=== PATIENT | female | born 1945 | race Caucasian/White ===

== ENCOUNTER 2019-10-31 14:32 | Inpatient (IN) | payer MEDICARE ==
[2019-10-31] MEDS ORDERED: Ondansetron 4 MG Tab.DIS PO PRN (15:06)
[2019-10-31] MEDS ORDERED: Sodium Chloride 0.9% 10 ML Syringe FLUSH PRN (15:06)
[2019-10-31] MEDS ORDERED: Levofloxacin/Dextrose 5%-Water 750 MG in Premix Bag 1 BAG IV SCH (15:30)
[2019-10-31] MEDS ORDERED: Albuterol/Ipratropium 3.0-0.5 MG/3 ML Neb Soln NEB PRN (17:00)
--- NOTE | 2019-10-31 17:49 | PCM.HP.2 ---
H&P History of Present Illness - General Date of Service: 10/31/19 Admit Problem/Dx: Admission Diagnosis/Problem Admission Diagnosis/Problem Pneumonia Source of Information: Patient History Limitations: Reports: No Limitations - History of Present Illness Initial Comments - Free Text/Narative: This is a very pleasant 74-year-old female patient is 1 week history of vomiting and diarrhea. Then after that she started having choking and coughing and unable to eat. She said fevers but no chills. She's had body aches. She did not get a flu shot. She says at the [facility] and [facility] they did swab her for influenza but she does know the result. She denies shortness of breath. But she says she can eat and she is very weak. She doesn't history of smoking less than a pack a day. She doesn't feel like smoking she states. - Related Data Allergies/Adverse Reactions: Allergies Allergy/AdvReac Type Severity Reaction Status Date / Time erythromycin base Allergy Mild unknown Verified 10/04/14 14:19 Penicillins Allergy Mild unknown Verified 10/04/14 14:19 Home Medications: Home Meds Aspirin [Halfprin] 81 mg PO DAILY 10/31/19 [History] DULoxetine HCl [Cymbalta] 60 mg PO DAILY 10/31/19 [History] Glimepiride [Amaryl] 1 mg PO WITHBREAKFAST 10/31/19 [History] Loratadine [Claritin] 10 mg PO DAILY 10/31/19 [History] Losartan [Cozaar] 100 mg PO DAILY 10/31/19 [History] Metoprolol Succinate [Toprol XL 50mg] 50 mg PO DAILY 10/31/19 [History] Ranitidine HCl [Ranitidine] 150 mg PO BID 10/31/19 [History] buPROPion HCL [Bupropion Xl] 300 mg PO DAILY 10/31/19 [History] hydroCHLOROthiazide [Hydrochlorothiazide] 25 mg PO DAILY 10/31/19 [History] metFORMIN HCl [Metformin HCl ER] 500 mg PO DAILY 10/31/19 [History] Past Medical History HEENT History: Reports: Impaired Vision Cardiovascular History: Reports: Hypertension Gastrointestinal History: Reports: Other (See Below) Other Gastrointestinal History: Acid Reflux, Lactose Intolerance, Diverticulitis [employer] History: Reports: , Other (See Below) Other OB/BYN History: Hysterectomy Musculoskeletal History: Reports: Arthritis, Back Pain, Chronic Neurological History: Reports: TIA Other Neuro History: TIA 3 years ago Psychiatric History: Reports: Depression Endocrine/Metabolic History: Reports: Diabetes, Type II - Past Surgical History HEENT Surgical History: Reports: None Cardiovascular Surgical History: Reports: None GI Surgical History: Reports: None Endocrine Surgical History: Reports: None Neurological Surgical History: Reports: None Musculoskeletal Surgical History: Reports: None Social & Family History - Tobacco Use Smoking Status *Q: Current Every Day Smoker - Living Situation & Occupation 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 Denies: Chills HEENT: Reports: No Symptoms Pulmonary: Reports: Cough, Sputum. Denies: Shortness of Breath, Wheezing, Hemoptysis Cardiovascular: Reports: No Symptoms Gastrointestinal: Reports: Diarrhea, Decreased Appetite, Nausea, Vomiting. Denies: Abdominal Pain, Hematochezia, Melena Genitourinary: Reports: No Symptoms Musculoskeletal: Reports: No Symptoms Skin: Reports: No Symptoms Psychiatric: Reports: No Symptoms Neurological: Reports: No Symptoms Hematologic/Lymphatic: Reports: No Symptoms Immunologic: Reports: No Symptoms Exam - Exam Exam: See Below - Exam General: Alert, Oriented, Cooperative HEENT: Hearing Intact, Normal Nasal Septum, Posterior Pharynx Clear, TMs Clear Neck: Supple, Trachea Midline Lungs: Normal Respiratory Effort, Crackles, Rales Cardiovascular: Regular Rate, Regular Rhythm. No: Systolic Murmur GI/Abdominal Exam: Normal Bowel Sounds, Soft, Non-Tender, No Organomegaly, No Distention, No Abnormal Bruit, No Mass Extremities: Normal Inspection, No Pedal Edema Skin: Warm, Dry, Intact Neuro Extensive - Mental Status: Alert, Oriented x3, Normal Mood/Affect, Normal Cognition, Memory Intact Psychiatric: Normal Affect, Normal Mood - Patient Data Lab Results Last 24 hrs: Laboratory Results - last 24 hr 10/31/19 10/31/19 Range/Units 16:28 16:28 Plt Count 213 (125-369) X10(3)uL Creatinine 1.3 H (0.55-1.02) mg/dL Est Cr Clr Drug Dosing TNP Estimated GFR (MDRD) 40 L (>60) Result Diagrams: 10/31/19 16:28 10/31/19 16:28 - Problem List (1) Pneumonia SNOMED Code(s): 338923159 ICD Code: J18.9 - PNEUMONIA, UNSPECIFIED ORGANISM Status: Acute Current Visit: Yes (2) Vomiting SNOMED Code(s): 387845815 ICD Code: R11.10 - VOMITING, UNSPECIFIED Status: Acute Current Visit: Yes (3) Dehydration SNOMED Code(s): 63448046 ICD Code: E86.0 - DEHYDRATION Status: Acute Current Visit: Yes (4) Weakness SNOMED Code(s): 64638569 ICD Code: R53.1 - WEAKNESS Status: Acute Current Visit: Yes (5) Palliative care status SNOMED Code(s): 907575445 ICD Code: Z51.5 - ENCOUNTER FOR PALLIATIVE CARE Status: Acute Current Visit: Yes Problem List Initiated/Reviewed/Updated: Yes Orders Last 24hrs: Active Orders 24 hr Category Date Time Status Patient Status [ADT] Routine ADT 10/31/19 15:06 Active Accu Check [Blood Glucose Check, Bedside] [RC] BIDMEALS Care 10/31/19 17:03 Active Height and Weight [RC] DAILY Care 10/31/19 15:06 Active Intake and Output [RC] QSHIFT Care 10/31/19 15:07 Active Oxygen Therapy [RC] PRN Care 10/31/19 15:06 Active Peripheral IV Care [RC] . DIRECTED Care 10/31/19 15:06 Active RT Aerosol Therapy [RC] ASDIRECTED Care 10/31/19 17:00 Active Up With Assistance [RC] ASDIRECTED Care 10/31/19 15:06 Active VTE/DVT Education [RC] Per Unit Routine Care 10/31/19 15:06 Active Vital Signs [RC] Q4H Care 10/31/19 15:06 Active Consistent Carbohydrate Diet [DIET] Diet 11/01/19 Breakfast Active CBC WITH AUTO DIFF [HEME] AM Lab 11/01/19 05:11 Ordered COMPREHENSIVE METABOLIC PN,CMP [CHEM] AM Lab 11/01/19 05:11 Ordered CULTURE BLOOD [BC] Urgent Lab 10/31/19 15:10 Received CULTURE BLOOD [BC] Urgent Lab 10/31/19 15:20 Received CULTURE SPUTUM + SMEAR [RM] Stat Lab 10/31/19 15:06 Ordered Albuterol/Ipratropium [DuoNeb 3.0-0.5 MG/3 ML] Med 10/31/19 17:00 Active 3 ml NEB Q4H PRN Aspirin [Halfprin] Med 11/01/19 09:00 Active 81 mg PO DAILY DULoxetine [Cymbalta] Med 11/01/19 09:00 Active 60 mg PO DAILY Enoxaparin [Lovenox] Med 10/31/19 15:15 Pending 40 mg SUBCUT Q24H Levofloxacin/Dextrose 5%-Water [Levaquin in D5W 750 MG/ Med 10/31/19 15:30 Active 150 ML] 750 mg Premix Bag 1 bag IV Q24H Loratadine [Claritin] Med 11/01/19 09:00 Active 10 mg PO DAILY Losartan [Cozaar] Med 11/01/19 09:00 Active 100 mg PO DAILY Metoprolol Succinate [Toprol XL] Med 11/01/19 09:00 Active 50 mg PO DAILY Ondansetron [Zofran ODT] Med 10/31/19 15:06 Active 4 mg PO Q4H PRN Ranitidine HCl [Ranitidine] Med 10/31/19 21:00 Pending 150 mg PO BID Sodium Chloride 0.9% [Normal Saline] 1,000 ml Med 10/31/19 15:15 Active IV ASDIRECTED Sodium Chloride 0.9% [Saline Flush] Med 10/31/19 15:06 Active 10 ml FLUSH ASDIRECTED PRN buPROPion [Wellbutrin XL] Med 11/01/19 09:00 Active 300 mg PO DAILY hydroCHLOROthiazide Med 11/01/19 09:00 Active 25 mg PO DAILY metFORMIN [Glucophage XR] Med 11/01/19 09:00 Active 500 mg PO DAILY Blood Culture x2 Reflex Set [OM.PC] Urgent Oth 10/31/19 15:06 Ordered Peripheral IV Insertion Adult [OM.PC] Routine Oth 10/31/19 15:06 Ordered Sequential Compression Device [OM.PC] Per Unit Routine Oth 10/31/19 15:08 Ordered Resuscitation Status Routine Resus Stat 10/31/19 15:06 Ordered Medication Orders Albuterol/Ipratropium (Duoneb 3.0-0.5 Mg/3 Ml) 3 ml NEB Q4H PRN PRN Reason: Dyspnea Aspirin (Halfprin) 81 mg PO DAILY [facility] Bupropion HCl (Wellbutrin Xl) 300 mg PO DAILY [facility] Duloxetine HCl (Cymbalta) 60 mg PO DAILY [facility] Enoxaparin Sodium (Lovenox) 40 mg SUBCUT Q24H [facility] Hydrochlorothiazide (Hydrochlorothiazide) 25 mg PO DAILY [facility] Levofloxacin/Dextrose 750 mg/ (Premix) 150 mls @ 100 mls/hr IV Q24H [facility] Last Admin: 10/31/19 16:35 Dose: 100 mls/hr Sodium Chloride (Normal Saline) 1,000 mls @ 125 mls/hr IV ASDIRECTED [facility] Loratadine (Claritin) 10 mg PO DAILY [facility] Losartan Potassium (Cozaar) 100 mg PO DAILY [facility] Metformin HCl (Glucophage Xr) 500 mg PO DAILY [facility] Metoprolol Succinate (Toprol Xl) 50 mg PO DAILY [facility] Non-Formulary Medication (Ranitidine Hcl [Ranitidine]) 150 mg PO BID [facility] Ondansetron HCl (Zofran Odt) 4 mg PO Q4H PRN PRN Reason: nausea, able to take PO Sodium Chloride (Saline Flush) 10 ml FLUSH ASDIRECTED PRN PRN Reason: Keep Vein Open Assessment/Plan Comment:: 1. Admit to inpatient 2. Levaquin IV 3. Patient had labs and a chest x-ray in the clinic. I have not been able to review them as of yet. Try to receive results in the a.m. chest x-ray interpretation given verbally by the providing provider. 4. Lovenox for VTE prophylaxis 5. Up with assist 6. IV fluids 7. Diabetic diet 8. Accu-Cheks twice a day. 9. Restart normal medications except Amaryl. 10. Labs in a.m. 1. Neb treatments when necessary. - Mortality Measure Prognosis:: Good
[2019-10-31] MEDS: Sodium Chloride 0.9% 1,000 ML IV SCH (18:14)
[2019-10-31] MEDS: Enoxaparin 40 MG/0.4 ML Syringe SUBCUT SCH (20:55)
[2019-10-31] MEDS: Famotidine 20 MG Tab PO SCH (20:56)
[2019-11-01] MEDS: Sodium Chloride 0.9% 1,000 ML IV SCH ×2 (01:52→09:50)
--- NOTE | 2019-11-01 08:30 | PCM.PN ---
- General Info Date of Service: 11/01/19 Admission Dx/Problem (Free Text): Patient states she couldn't sleep last night due to the SCDs. She is asking if she could have a sleeping pill. She still coughing but feels most the cough is coming from sinus drainage. She denies shortness breath, chest pain or leg swelling and she denies fevers or chills. - Patient Data Vitals - Most Recent: Last Vital Signs Temp 98.0 F 11/01/19 04:00 Pulse 83 11/01/19 04:00 Resp 16 11/01/19 04:00 BP 137/69 11/01/19 04:00 Pulse Ox 98 11/01/19 04:00 Weight - Most Recent: 207 lb 14.4 oz I&O - Last 24 Hours: Intake & Output 10/31/19 11/01/19 11/01/19 22:59 06:59 14:59 Intake Total 600 1115 Output Total 550 300 Balance 50 815 Lab Results Last 24 Hours: Laboratory Results - last 24 hr 10/31/19 10/31/19 10/31/19 Range/Units 16:28 16:28 17:26 WBC (4.5-12.0) X10-3/uL RBC (3.23-5.20) x10(6)uL Hgb (11.5-15.5) g/dL Hct (30.0-51.3) % MCV (80-96) fL MCH (27.7-33.6) pg MCHC (32.2-35.4) g/dL RDW (11.5-15.5) % Plt Count 213 (125-369) X10(3)uL MPV (7.4-10.4) fL Neut % (Auto) (46-82) % Lymph % (Auto) (13-37) % Sutton % (Auto) (4-12) % Eos % (Auto) (1.0-5.0) % Baso % (Auto) (0-2) % Neut # (Auto) (1.6-8.3) # Lymph # (Auto) (0.6-5.0) # Sutton # (Auto) (0.0-1.3) # Eos # (Auto) (0.0-0.8) # Baso # (Auto) (0.0-0.2) # Sodium (135-145) mmol/L Potassium (3.5-5.3) mmol/L Chloride (100-110) mmol/L Carbon Dioxide (21-32) mmol/L BUN (7-18) mg/dL Creatinine 1.3 H (0.55-1.02) mg/dL Est Cr Clr Drug Dosing TNP Estimated GFR (MDRD) 40 L (>60) BUN/Creatinine Ratio (9-20) Glucose (80-116) mg/dL POC Glucose 225 H (80-116) mg/dL Calcium (8.6-10.2) mg/dL Total Bilirubin (0.1-1.3) mg/dL AST (5-25) IU/L ALT (12-36) U/L Alkaline Phosphatase (56-112) IU/L Total Protein (6.0-8.0) g/dL Albumin (3.2-4.6) g/dL Globulin g/dL Albumin/Globulin Ratio 11/01/19 11/01/19 11/01/19 Range/Units 05:16 06:25 06:25 WBC 6.5 (4.5-12.0) X10-3/uL RBC 4.62 (3.23-5.20) x10(6)uL Hgb 13.2 (11.5-15.5) g/dL Hct 38.9 (30.0-51.3) % MCV 84.2 (80-96) fL MCH 28.6 (27.7-33.6) pg MCHC 34.0 (32.2-35.4) g/dL RDW 13.4 (11.5-15.5) % Plt Count 155 (125-369) X10(3)uL MPV 8.8 (7.4-10.4) fL Neut % (Auto) 69.3 (46-82) % Lymph % (Auto) 22.3 (13-37) % Sutton % (Auto) 6.9 (4-12) % Eos % (Auto) 1 (1.0-5.0) % Baso % (Auto) 1 (0-2) % Neut # (Auto) 4.5 (1.6-8.3) # Lymph # (Auto) 1.4 (0.6-5.0) # Sutton # (Auto) 0.4 (0.0-1.3) # Eos # (Auto) 0.1 (0.0-0.8) # Baso # (Auto) 0.0 (0.0-0.2) # Sodium 139 (135-145) mmol/L Potassium 3.3 L (3.5-5.3) mmol/L Chloride 103 (100-110) mmol/L Carbon Dioxide 26 (21-32) mmol/L BUN 21 H (7-18) mg/dL Creatinine 1.2 H (0.55-1.02) mg/dL Est Cr Clr Drug Dosing 35.05 Estimated GFR (MDRD) 44 L (>60) BUN/Creatinine Ratio 17.5 (9-20) Glucose 192 H (80-116) mg/dL POC Glucose 175 H (80-116) mg/dL Calcium 8.1 L (8.6-10.2) mg/dL Total Bilirubin 0.9 (0.1-1.3) mg/dL AST 24 D (5-25) IU/L ALT 18 D (12-36) U/L Alkaline Phosphatase 78 (56-112) IU/L Total Protein 6.5 (6.0-8.0) g/dL Albumin 2.8 L (3.2-4.6) g/dL Globulin 3.7 g/dL Albumin/Globulin Ratio 0.8 Damon Results Last 24 Hours: Microbiology 10/31/19 18:07 Influenza Type A Antigen Screen - Final Nasal Aspirate, Unspecified NEGATIVE INFLUENZA A VIRUS AG REFERENCE RANGE: NEGATIVE Influenza Type B Antigen Screen - Final NEGATIVE INFLUENZA B VIRUS AG REFERENCE RANGE: NEGATIVE Med Orders - Current: Current Medications Albuterol/Ipratropium (Duoneb 3.0-0.5 Mg/3 Ml) 3 ml NEB Q4H PRN PRN Reason: Dyspnea Aspirin (Halfprin) 81 mg PO DAILY [facility] Bupropion HCl (Wellbutrin Xl) 300 mg PO DAILY [facility] Duloxetine HCl (Cymbalta) 60 mg PO DAILY [facility] Enoxaparin Sodium (Lovenox) 40 mg SUBCUT Q24H [facility] Last Admin: 10/31/19 20:55 Dose: 40 mg Famotidine (Pepcid) 20 mg PO BEDTIME [facility] Last Admin: 10/31/19 20:56 Dose: 20 mg Glimepiride (Amaryl) 1 mg PO WITHBREAKFAST [facility] Hydrochlorothiazide (Hydrochlorothiazide) 25 mg PO DAILY [facility] Levofloxacin/Dextrose 750 mg/ (Premix) 150 mls @ 100 mls/hr IV Q24H [facility] Last Admin: 10/31/19 16:35 Dose: 100 mls/hr Sodium Chloride (Normal Saline) 1,000 mls @ 125 mls/hr IV ASDIRECTED [facility] Last Admin: 11/01/19 01:52 Dose: 125 mls/hr Loratadine (Claritin) 10 mg PO DAILY [facility] Losartan Potassium (Cozaar) 100 mg PO DAILY [facility] Metformin HCl (Glucophage Xr) 500 mg PO DAILY [facility] Metoprolol Succinate (Toprol Xl) 50 mg PO DAILY [facility] Ondansetron HCl (Zofran Odt) 4 mg PO Q4H PRN PRN Reason: nausea, able to take PO Potassium Chloride (Klor-Con M20) 20 meq PO DAILY [facility] Sodium Chloride (Saline Flush) 10 ml FLUSH ASDIRECTED PRN PRN Reason: Keep Vein Open Zolpidem Tartrate (Ambien) 5 mg PO BEDTIME [facility] - Exam General: Alert, Oriented, Cooperative Neck: Supple Lungs: Clear to Auscultation, Normal Respiratory Effort Cardiovascular: Regular Rate, Regular Rhythm, No Murmurs Extremities: No Pedal Edema Sepsis Event Note - Evaluation Sepsis Screening Result: No Definite Risk - Focused Exam Vital Signs: Vital Signs Temp Pulse Resp BP Pulse Ox 11/01/19 04:00 98.0 F 83 16 137/69 98 11/01/19 00:00 97.8 F 97 16 164/84 H 98 Date Exam was Performed: 11/01/19 Time Exam was Performed: 08:27 - Problem List & Annotations (1) Pneumonia SNOMED Code(s): 417026362 Code(s): J18.9 - PNEUMONIA, UNSPECIFIED ORGANISM Status: Acute Current Visit: Yes (2) Vomiting SNOMED Code(s): 600563250 Code(s): R11.10 - VOMITING, UNSPECIFIED Status: Acute Current Visit: Yes (3) Dehydration SNOMED Code(s): 11087211 Code(s): E86.0 - DEHYDRATION Status: Acute Current Visit: Yes (4) Weakness SNOMED Code(s): 44172700 Code(s): R53.1 - WEAKNESS Status: Acute Current Visit: Yes (5) Palliative care status SNOMED Code(s): 636190361 Code(s): Z51.5 - ENCOUNTER FOR PALLIATIVE CARE Status: Acute Current Visit: Yes (6) Hypokalemia SNOMED Code(s): 14530111 Code(s): E87.6 - HYPOKALEMIA Status: Acute Current Visit: Yes (7) Diabetes type 2, controlled SNOMED Code(s): 19373960, 956869065 Code(s): E11.9 - TYPE 2 DIABETES MELLITUS WITHOUT COMPLICATIONS Status: Acute Current Visit: Yes - Problem List Review Problem List Initiated/Reviewed/Updated: Yes - My Orders Last 24 Hours: My Active Orders 10/31/19 15:06 Patient Status [ADT] Routine Oxygen Therapy [RC] PRN Peripheral IV Care [RC] 08,16,00 Up With Assistance [RC] ASDIRECTED VTE/DVT Education [RC] DAILY Vital Signs [RC] QSHIFT CULTURE SPUTUM + SMEAR [RM] Stat Ondansetron [Zofran ODT] 4 mg PO Q4H PRN Sodium Chloride 0.9% [Saline Flush] 10 ml FLUSH ASDIRECTED PRN Blood Culture x2 Reflex Set [OM.PC] Urgent Peripheral IV Insertion Adult [OM.PC] Routine Resuscitation Status Routine 10/31/19 15:10 CULTURE BLOOD [BC] Urgent 10/31/19 15:15 Sodium Chloride 0.9% [Normal Saline] 1,000 ml IV ASDIRECTED 10/31/19 15:20 CULTURE BLOOD [BC] Urgent 10/31/19 15:30 Levofloxacin/Dextrose 5%-Water [Levaquin in D5W 750 MG/150 ML] 750 mg Premix Bag 1 bag IV Q24H 10/31/19 17:00 RT Aerosol Therapy [RC] ASDIRECTED Albuterol/Ipratropium [DuoNeb 3.0-0.5 MG/3 ML] 3 ml NEB Q4H PRN 10/31/19 17:03 Accu Check [Blood Glucose Check, Bedside] [RC] 07,10/31/19 21:00 Enoxaparin [Lovenox] 40 mg SUBCUT Q24H Famotidine [Pepcid] 20 mg PO BEDTIME 11/01/19 08:00 Glimepiride [Amaryl] 1 mg PO WITHBREAKFAST 11/01/19 09:00 Aspirin [Halfprin] 81 mg PO DAILY DULoxetine [Cymbalta] 60 mg PO DAILY Loratadine [Claritin] 10 mg PO DAILY Losartan [Cozaar] 100 mg PO DAILY Metoprolol Succinate [Toprol XL] 50 mg PO DAILY Potassium Chloride [Klor-Con M20] 20 meq PO DAILY buPROPion [Wellbutrin XL] 300 mg PO DAILY hydroCHLOROthiazide 25 mg PO DAILY metFORMIN [Glucophage XR] 500 mg PO DAILY 11/01/19 21:00 Zolpidem [Ambien] 5 mg PO BEDTIME 11/01/19 Breakfast Consistent Carbohydrate Diet [DIET] 11/02/19 06:00 BASIC METABOLIC PANEL,BMP [CHEM] AM - Plan Plan:: 1. Decrease IV rate 200 mL an hour. Decrease IV rate to 100 mL an hour. 2. 5 mg Ambien at at bedtime 3. 20 mEq of potassium a day. 4. Stop SCD due to patient can sleep with them on. Continue Lovenox. 5. Ambulate frequently and up in chair 6. Repeat BMP in the a.m. 7. Continue IV antibiotics. 8. Continue to observe blood sugars. No change in treatment at this time.
[2019-11-01] MEDS: Losartan 100 MG Tab PO SCH (08:35)
[2019-11-01] MEDS: metFORMIN 500 MG Tab.ER PO SCH (08:35)
[2019-11-01] MEDS: Loratadine 10 MG Tab PO SCH (08:35)
[2019-11-01] MEDS: Glimepiride 2 MG Tab PO SCH (08:35)
[2019-11-01] MEDS: Hydrochlorothiazide 25 MG Tab PO SCH (08:36)
[2019-11-01] MEDS: buPROPion 150 MG Tab.ER PO SCH (08:36)
[2019-11-01] MEDS: Metoprolol Succinate 50 MG Tab.ER PO SCH (08:36)
[2019-11-01] MEDS: Aspirin 81 MG Tab.EC PO SCH (08:36)
[2019-11-01] MEDS: DULoxetine 60 MG Cap PO SCH (08:36)
[2019-11-01] MEDS: Potassium Chloride 20 MEQ Tab.ER PO SCH (09:07)
[2019-11-01] MEDS: Enoxaparin 40 MG/0.4 ML Syringe SUBCUT SCH (20:24)
[2019-11-01] MEDS: Famotidine 20 MG Tab PO SCH (20:25)
[2019-11-01] MEDS ORDERED: Zolpidem 5 MG Tab PO SCH (21:00)
--- NOTE | 2019-11-02 08:06 | PCM.PN ---
- General Info Date of Service: 11/02/19 Admission Dx/Problem (Free Text): Patient states she feels 100% better. She has a minimal cough with no shortness of breath, fevers or chills. She has energy and she has her appetite back. - Patient Data Vitals - Most Recent: Last Vital Signs Temp 98.1 F 11/01/19 23:30 Pulse 72 11/01/19 23:30 Resp 18 11/01/19 23:30 BP 123/63 11/01/19 23:30 Pulse Ox 95 11/01/19 23:30 Weight - Most Recent: 207 lb 14.4 oz Lab Results Last 24 Hours: Laboratory Results - last 24 hr 11/01/19 11/02/19 Range/Units 17:06 06:40 Sodium 141 (135-145) mmol/L Potassium 3.6 (3.5-5.3) mmol/L Chloride 106 (100-110) mmol/L Carbon Dioxide 30 (21-32) mmol/L BUN 14 (7-18) mg/dL Creatinine 1.1 H (0.55-1.02) mg/dL Est Cr Clr Drug Dosing 38.24 mL/min Estimated GFR (MDRD) 49 L (>60) BUN/Creatinine Ratio 12.7 (9-20) Glucose 204 H (80-116) mg/dL POC Glucose 153 H (80-116) mg/dL Calcium 8.5 L (8.6-10.2) mg/dL Damon Results Last 24 Hours: Microbiology 10/31/19 15:10 Aerobic Blood Culture - Preliminary Blood - Venous NO GROWTH AFTER 1 DAY Anaerobic Blood Culture - Preliminary NO GROWTH AFTER 1 DAY 10/31/19 15:20 Aerobic Blood Culture - Preliminary Blood - Venous - Lab Draw NO GROWTH AFTER 1 DAY Anaerobic Blood Culture - Preliminary NO GROWTH AFTER 1 DAY Med Orders - Current: Current Medications Albuterol/Ipratropium (Duoneb 3.0-0.5 Mg/3 Ml) 3 ml NEB Q4H PRN PRN Reason: Dyspnea Aspirin (Halfprin) 81 mg PO DAILY [facility] Last Admin: 11/01/19 08:36 Dose: 81 mg Bupropion HCl (Wellbutrin Xl) 300 mg PO DAILY [facility] Last Admin: 11/01/19 08:36 Dose: 300 mg Duloxetine HCl (Cymbalta) 60 mg PO DAILY [facility] Last Admin: 11/01/19 08:36 Dose: 60 mg Enoxaparin Sodium (Lovenox) 40 mg SUBCUT Q24H [facility] Last Admin: 11/01/19 20:24 Dose: 40 mg Famotidine (Pepcid) 20 mg PO BEDTIME [facility] Last Admin: 11/01/19 20:25 Dose: 20 mg Glimepiride (Amaryl) 1 mg PO WITHBREAKFAST [facility] Last Admin: 11/01/19 08:35 Dose: 1 mg Hydrochlorothiazide (Hydrochlorothiazide) 25 mg PO DAILY [facility] Last Admin: 11/01/19 08:36 Dose: 25 mg Levofloxacin/Dextrose (Levaquin In D5w 750 Mg/150 Ml) 150 mls @ 100 mls/hr IV Q48H [facility] Loratadine (Claritin) 10 mg PO DAILY [facility] Last Admin: 11/01/19 08:35 Dose: 10 mg Losartan Potassium (Cozaar) 100 mg PO DAILY [facility] Last Admin: 11/01/19 08:35 Dose: 100 mg Metformin HCl (Glucophage Xr) 500 mg PO DAILY [facility] Last Admin: 11/01/19 08:35 Dose: 500 mg Metoprolol Succinate (Toprol Xl) 50 mg PO DAILY [facility] Last Admin: 11/01/19 08:36 Dose: 50 mg Ondansetron HCl (Zofran Odt) 4 mg PO Q4H PRN PRN Reason: nausea, able to take PO Potassium Chloride (Klor-Con M20) 20 meq PO DAILY [facility] Last Admin: 11/01/19 09:07 Dose: 20 meq Sodium Chloride (Saline Flush) 10 ml FLUSH ASDIRECTED PRN PRN Reason: Keep Vein Open Zolpidem Tartrate (Ambien) 5 mg PO BEDTIME [facility] Last Admin: 11/01/19 20:32 Dose: 5 mg Discontinued Medications Levofloxacin/Dextrose 750 mg/ (Premix) 150 mls @ 100 mls/hr IV Q24H [facility] Last Admin: 10/31/19 16:35 Dose: 100 mls/hr Sodium Chloride (Normal Saline) 1,000 mls @ 125 mls/hr IV ASDIRECTED [facility] Last Admin: 11/01/19 09:50 Dose: 125 mls/hr - Exam General: Alert, Oriented Lungs: Clear to Auscultation, Normal Respiratory Effort. No: Crackles, Rales, Rhonchi Cardiovascular: Regular Rate, Regular Rhythm, No Murmurs Extremities: No Pedal Edema Sepsis Event Note - Evaluation Sepsis Screening Result: No Definite Risk - Focused Exam Vital Signs: Vital Signs Temp Pulse Resp BP Pulse Ox 11/01/19 23:30 98.1 F 72 18 123/63 95 Date Exam was Performed: 11/02/19 Time Exam was Performed: 08:04 - Problem List & Annotations (1) Pneumonia SNOMED Code(s): 464808114 Code(s): J18.9 - PNEUMONIA, UNSPECIFIED ORGANISM Status: Acute Current Visit: Yes (2) Vomiting SNOMED Code(s): 695884967 Code(s): R11.10 - VOMITING, UNSPECIFIED Status: Acute Current Visit: Yes (3) Dehydration SNOMED Code(s): 87648420 Code(s): E86.0 - DEHYDRATION Status: Acute Current Visit: Yes (4) Weakness SNOMED Code(s): 54960377 Code(s): R53.1 - WEAKNESS Status: Acute Current Visit: Yes (5) Palliative care status SNOMED Code(s): 518332873 Code(s): Z51.5 - ENCOUNTER FOR PALLIATIVE CARE Status: Acute Current Visit: Yes (6) Hypokalemia SNOMED Code(s): 69671149 Code(s): E87.6 - HYPOKALEMIA Status: Acute Current Visit: Yes (7) Diabetes type 2, controlled SNOMED Code(s): 76730174, 830109116 Code(s): E11.9 - TYPE 2 DIABETES MELLITUS WITHOUT COMPLICATIONS Status: Acute Current Visit: Yes (8) Acute kidney injury SNOMED Code(s): 09821586, 64494942 Code(s): N17.9 - ACUTE KIDNEY FAILURE, UNSPECIFIED Status: Acute Current Visit: Yes - Problem List Review Problem List Initiated/Reviewed/Updated: Yes - My Orders Last 24 Hours: My Active Orders 11/01/19 08:00 Glimepiride [Amaryl] 1 mg PO WITHBREAKFAST 11/01/19 09:00 Aspirin [Halfprin] 81 mg PO DAILY DULoxetine [Cymbalta] 60 mg PO DAILY Loratadine [Claritin] 10 mg PO DAILY Losartan [Cozaar] 100 mg PO DAILY Metoprolol Succinate [Toprol XL] 50 mg PO DAILY Potassium Chloride [Klor-Con M20] 20 meq PO DAILY buPROPion [Wellbutrin XL] 300 mg PO DAILY hydroCHLOROthiazide 25 mg PO DAILY metFORMIN [Glucophage XR] 500 mg PO DAILY 11/01/19 17:54 Convert IV to Saline Lock [OM.PC] Routine 11/01/19 21:00 Zolpidem [Ambien] 5 mg PO BEDTIME 11/02/19 16:00 Levofloxacin/Dextrose 5%-Water [Levaquin in D5W 750 MG/150 ML] 150 ml IV Q48H - Plan Plan:: 1. Discharge home on Levaquin by mouth. 2. Recheck with Ana Means in 1 week with a panel 8.
--- NOTE | 2019-11-02 08:15 | PCM.DCSUM1 ---
Discharge Summary - Hospital Course Free Text/Narrative:: Hospital course-patient was started on Levaquin 750 mg IV every 48 hours. She is also start nebulizer treatment with the diabetic diet and I held her Amaryl. Patient did really well. By the next day she was breathing better and her nausea vomiting is gone. No fevers or chills. Day 2 she says she felt 100% better. Minimal cough should a good appetite. Her running was slightly elevated improved on IV fluids. IV fluids are stopped after the first day. She was able to keep good by mouth nutrition and fluids down. Potassium was slightly low and I gave her potassium by mouth for 1 day and a corrected. Brief History: This is a very pleasant 74-year-old female patient is 1 week history of vomiting and diarrhea. Then after that she started having choking and coughing and unable to eat. She said fevers but no chills. She's had body aches. She did not get a flu shot. She says at the clinic and [place] they did swab her for influenza but she does know the result. She denies shortness of breath. But she says she can eat and she is very weak. She doesn't history of smoking less than a pack a day. She doesn't feel like smoking she states. Diagnosis: Stroke: No Modified [place] Scale: No Signif.Disability Despite Sympt.Able to Carry Out Usual Act./Duties Modified [place] Scale Score: 1 - Discharge Data Discharge Date: 11/02/19 Discharge Disposition: Home, Self-Care 01 Condition: Good - Referral to Home Health Primary Care Physician: Ora Cassidy NP - Discharge Diagnosis/Problem(s) (1) Pneumonia SNOMED Code(s): 886588211 ICD Code: J18.9 - PNEUMONIA, UNSPECIFIED ORGANISM Status: Acute Current Visit: Yes (2) Vomiting SNOMED Code(s): 538616501 ICD Code: R11.10 - VOMITING, UNSPECIFIED Status: Acute Current Visit: Yes (3) Dehydration SNOMED Code(s): 86258006 ICD Code: E86.0 - DEHYDRATION Status: Acute Current Visit: Yes (4) Weakness SNOMED Code(s): 26189146 ICD Code: R53.1 - WEAKNESS Status: Acute Current Visit: Yes (5) Palliative care status SNOMED Code(s): 239872013 ICD Code: Z51.5 - ENCOUNTER FOR PALLIATIVE CARE Status: Acute Current Visit: Yes (6) Hypokalemia SNOMED Code(s): 74419864 ICD Code: E87.6 - HYPOKALEMIA Status: Acute Current Visit: Yes (7) Diabetes type 2, controlled SNOMED Code(s): 45635546, 029259663 ICD Code: E11.9 - TYPE 2 DIABETES MELLITUS WITHOUT COMPLICATIONS Status: Acute Current Visit: Yes (8) Acute kidney injury SNOMED Code(s): 27565928, 71457555 ICD Code: N17.9 - ACUTE KIDNEY FAILURE, UNSPECIFIED Status: Acute Current Visit: Yes - Patient Instructions Diet: Diabetic Diet Activity: As Tolerated Showering/Bathing: February Shower Notify Provider of: Fever, Drainage Other/Special Instructions: 1. Recheck with Ana Means in 1 week. 2. The Levaquin 750 every other day. #4 pills. The pharmacist will call this to Jud[facility] blanc. - Discharge Plan Prescriptions/Med Rec: Levofloxacin [Levaquin] 750 mg PO DAILY #7 tablet Home Medications: Home Meds Aspirin [Halfprin] 81 mg PO DAILY 10/31/19 [History] DULoxetine HCl [Cymbalta] 60 mg PO DAILY 10/31/19 [History] Glimepiride [Amaryl] 1 mg PO WITHBREAKFAST 10/31/19 [History] Loratadine [Claritin] 10 mg PO DAILY 10/31/19 [History] Losartan [Cozaar] 100 mg PO DAILY 10/31/19 [History] Metoprolol Succinate [Toprol XL 50mg] 50 mg PO DAILY 10/31/19 [History] Ranitidine HCl [Ranitidine] 150 mg PO BID 10/31/19 [History] buPROPion HCL [Bupropion Xl] 300 mg PO DAILY 10/31/19 [History] hydroCHLOROthiazide [Hydrochlorothiazide] 25 mg PO DAILY 10/31/19 [History] metFORMIN HCl [Metformin HCl ER] 500 mg PO DAILY 10/31/19 [History] Levofloxacin [Levaquin] 750 mg PO DAILY #7 tablet 11/02/19 [Rx] Patient Handouts: Fall Prevention in Hospitals, Adult, Venous Thromboembolism Prevention, Community-Acquired Pneumonia, Adult, [id number] - Discharge Summary/Plan Comment DC Time >30 min.: No - Patient Data Vitals - Most Recent: Last Vital Signs Temp 98.1 F 11/01/19 23:30 Pulse 72 11/01/19 23:30 Resp 18 11/01/19 23:30 BP 123/63 11/01/19 23:30 Pulse Ox 95 11/01/19 23:30 Weight - Most Recent: 207 lb 14.4 oz Lab Results - Last 24 hrs: Laboratory Results - last 24 hr 11/01/19 11/02/19 Range/Units 17:06 06:40 Sodium 141 (135-145) mmol/L Potassium 3.6 (3.5-5.3) mmol/L Chloride 106 (100-110) mmol/L Carbon Dioxide 30 (21-32) mmol/L BUN 14 (7-18) mg/dL Creatinine 1.1 H (0.55-1.02) mg/dL Est Cr Clr Drug Dosing 38.24 mL/min Estimated GFR (MDRD) 49 L (>60) BUN/Creatinine Ratio 12.7 (9-20) Glucose 204 H (80-116) mg/dL POC Glucose 153 H (80-116) mg/dL Calcium 8.5 L (8.6-10.2) mg/dL BUDDY Results - Last 24 hrs: Microbiology 10/31/19 15:10 Aerobic Blood Culture - Preliminary Blood - Venous NO GROWTH AFTER 1 DAY Anaerobic Blood Culture - Preliminary NO GROWTH AFTER 1 DAY 10/31/19 15:20 Aerobic Blood Culture - Preliminary Blood - Venous - Lab Draw NO GROWTH AFTER 1 DAY Anaerobic Blood Culture - Preliminary NO GROWTH AFTER 1 DAY Med Orders - Current: Current Medications Albuterol/Ipratropium (Duoneb 3.0-0.5 Mg/3 Ml) 3 ml NEB Q4H PRN PRN Reason: Dyspnea Aspirin (Halfprin) 81 mg PO DAILY ON LICENSE OF [facility] Last Admin: 11/01/19 08:36 Dose: 81 mg Bupropion HCl (Wellbutrin Xl) 300 mg PO DAILY ON LICENSE OF [facility] Last Admin: 11/01/19 08:36 Dose: 300 mg Duloxetine HCl (Cymbalta) 60 mg PO DAILY ON LICENSE OF [facility] Last Admin: 11/01/19 08:36 Dose: 60 mg Enoxaparin Sodium (Lovenox) 40 mg SUBCUT Q24H ON LICENSE OF [facility] Last Admin: 11/01/19 20:24 Dose: 40 mg Famotidine (Pepcid) 20 mg PO BEDTIME ON LICENSE OF [facility] Last Admin: 11/01/19 20:25 Dose: 20 mg Glimepiride (Amaryl) 1 mg PO WITHBREAKFAST ON LICENSE OF [facility] Last Admin: 11/01/19 08:35 Dose: 1 mg Hydrochlorothiazide (Hydrochlorothiazide) 25 mg PO DAILY ON LICENSE OF [facility] Last Admin: 11/01/19 08:36 Dose: 25 mg Levofloxacin/Dextrose (Levaquin In D5w 750 Mg/150 Ml) 150 mls @ 100 mls/hr IV Q48H ON LICENSE OF [facility] Loratadine (Claritin) 10 mg PO DAILY ON LICENSE OF [facility] Last Admin: 11/01/19 08:35 Dose: 10 mg Losartan Potassium (Cozaar) 100 mg PO DAILY ON LICENSE OF [facility] Last Admin: 11/01/19 08:35 Dose: 100 mg Metformin HCl (Glucophage Xr) 500 mg PO DAILY ON LICENSE OF [facility] Last Admin: 11/01/19 08:35 Dose: 500 mg Metoprolol Succinate (Toprol Xl) 50 mg PO DAILY ON LICENSE OF [facility] Last Admin: 11/01/19 08:36 Dose: 50 mg Ondansetron HCl (Zofran Odt) 4 mg PO Q4H PRN PRN Reason: nausea, able to take PO Potassium Chloride (Klor-Con M20) 20 meq PO DAILY ON LICENSE OF [facility] Last Admin: 11/01/19 09:07 Dose: 20 meq Sodium Chloride (Saline Flush) 10 ml FLUSH ASDIRECTED PRN PRN Reason: Keep Vein Open Zolpidem Tartrate (Ambien) 5 mg PO BEDTIME ON LICENSE OF [facility] Last Admin: 11/01/19 20:32 Dose: 5 mg Discontinued Medications Levofloxacin/Dextrose 750 mg/ (Premix) 150 mls @ 100 mls/hr IV Q24H ON LICENSE OF [facility] Last Admin: 10/31/19 16:35 Dose: 100 mls/hr Sodium Chloride (Normal Saline) 1,000 mls @ 125 mls/hr IV ASDIRECTED ON LICENSE OF [facility] Last Admin: 11/01/19 09:50 Dose: 125 mls/hr
[2019-11-02] MEDS: Glimepiride 2 MG Tab PO SCH (08:18)
[2019-11-02] MEDS: Loratadine 10 MG Tab PO SCH (08:18)
[2019-11-02] MEDS: Losartan 100 MG Tab PO SCH (08:18)
[2019-11-02] MEDS: Aspirin 81 MG Tab.EC PO SCH (08:19)
[2019-11-02] MEDS: metFORMIN 500 MG Tab.ER PO SCH (08:19)
[2019-11-02] MEDS: Metoprolol Succinate 50 MG Tab.ER PO SCH (08:19)
[2019-11-02] MEDS: Potassium Chloride 20 MEQ Tab.ER PO SCH (08:19)
[2019-11-02] MEDS: DULoxetine 60 MG Cap PO SCH (08:19)
[2019-11-02] MEDS: Hydrochlorothiazide 25 MG Tab PO SCH (08:19)
[2019-11-02 08:20] VITALS: BP 133/72; PULSE 70
[2019-11-02] MEDS: buPROPion 150 MG Tab.ER PO SCH (08:20)
[2019-11-02] MEDS ORDERED: Calcium Carbonate 500 MG Tab.Chew PO ONE (10:04)
[2019-11-02] MEDS ORDERED: Levofloxacin/Dextrose 5%-Water 150 ML IV SCH (16:00)
== END 2019-11-02 10:40 | disposition home or self-care (01) | DRG 194 ==
LOC: FB.MS 14:32
PROVIDERS: ADMIT Nurse Practitioner Family; ATTEND Family Medicine
DX: J18.9 Pneumonia, unspecified organism (principal); N17.9 Acute kidney failure, unspecified; E86.0 Dehydration; Z51.5 Encounter for palliative care; E87.6 Hypokalemia; E11.9 Type 2 diabetes mellitus without complications; H54.7 Unspecified visual loss; I10 Essential (primary) hypertension; K21.9 Gastro-esophageal reflux disease without esophagitis; G89.29 Other chronic pain; M54.9 Dorsalgia, unspecified; F32.9 Major depressive disorder, single episode, unspecified; F17.210 Nicotine dependence, cigarettes, uncomplicated; M19.90 Unspecified osteoarthritis, unspecified site; Z90.710 Acquired absence of both cervix and uterus; Z86.73 Personal history of transient ischemic attack (TIA), and cerebral infarction without residual deficits; Z79.82 Long term (current) use of aspirin; Z79.899 Other long term (current) drug therapy; Z79.84 Long term (current) use of oral hypoglycemic drugs; Z88.1 Allergy status to other antibiotic agents; Z88.0 Allergy status to penicillin
CPT/HCPCS: 36415; 80048; 80053; 82565; 82962; 85025; 85049; 87040; 87804; 87804-59; A9270-GY; J1650; J1956; J7030

== ENCOUNTER 2020-03-06 07:30 | Day surgery (SDC) | payer MEDICARE ==
[~2020-03-06 07:30] MED LIST: Lactated Ringers 1,000 ML IV SCH; Sodium Chloride 0.9% 10 ML Syringe FLUSH PRN
[2020-03-06] MEDS ORDERED: Sugammadex Sodium 200 MG/2 ML VIAL IV ONE (07:31)
[2020-03-06] MEDS ORDERED: Lidocaine 2% 5 ML SDV INJECT ONE (07:31)
[2020-03-06] MEDS ORDERED: Succinylcholine 200 MG/10 ML MDV IV ONE (07:31)
[2020-03-06] MEDS ORDERED: Rocuronium 100 MG/10 ML MDV IV ONE (07:31)
[2020-03-06] MEDS ORDERED: Propofol 200 MG/20 ML SDV IV ONE (07:31)
[2020-03-06] MEDS ORDERED: Ondansetron 4 MG/2 ML SDV IVPUSH ONE (07:31)
[2020-03-06] MEDS ORDERED: fentaNYL 100 MCG/2 ML SDV IV ONE (07:31)
[2020-03-06] MEDS ORDERED: hydrALAZINE 20 MG/ML SDV IV ONE (07:31)
[2020-03-06] MEDS ORDERED: Lactated Ringers 1,000 ML IV ONE (07:31)
[2020-03-06] MEDS ORDERED: Midazolam 1 MG/ML 2 ML SDV IV ONE (07:31)
[2020-03-06] MEDS ORDERED: Dexamethasone 4 MG/ML 5 ML MDV IVPUSH ONE (07:31)
[2020-03-06] MEDS ORDERED: Albuterol/Ipratropium 3.0-0.5 MG/3 ML Neb Soln NEB ONE (07:45)
--- NOTE | 2020-03-06 10:36 | PCM.HPR ---
H & P Addendum review - H & P Addendum Review Date of Original H & P: 03/05/20 Date Reviewed: 03/06/20 Time Reviewed: 08:30 Patient was Examined: No Changes
--- NOTE | 2020-03-06 10:37 | PCM.OPNOTE ---
- General Post-Op/Procedure Note Date of Surgery/Procedure: 03/06/20 Operative Procedure(s): Lap Elizabeth Findings: Chronic Cholecystitis; Stone impacted in neck Pre Op Diagnosis: Symptomatic Cholelithiasis Post-Op Diagnosis: Same Anesthesia Technique: General ET Tube Primary Surgeon: Levon Wadsworth Pathology: GB EBL in mLs: 10 Complications: None Condition: Good
[2020-03-06] MEDS ORDERED: Acetaminophen/HYDROcodone 325-5 MG Tab PO PRN (10:49)
[2020-03-06] MEDS ORDERED: fentaNYL 100 MCG/2 ML SDV IVPUSH PRN ×2 (12:02→12:10)
[2020-03-06 12:47] VITALS: BP 127/64; PULSE 69
--- NOTE | 2020-03-07 11:52 | OR ---
DATE OF OPERATION: 03/06/2020 SURGEON: Levon Wadsworth MD PREOPERATIVE DIAGNOSIS: Symptomatic cholelithiasis. POSTOPERATIVE DIAGNOSIS: Symptomatic cholelithiasis and chronic cholecystitis with adhesions. PROCEDURE: Laparoscopic cholecystectomy with adhesiolysis. ANESTHESIA: General endotracheal. DESCRIPTION OF PROCEDURE: The patient was brought to the operating room, where general endotracheal anesthesia was administered. Time-out was performed. The abdomen was prepped with ChloraPrep and draped sterilely. An infraumbilical incision was made and extended into the peritoneal cavity without difficulty. There were adhesions to the right side of the umbilicus and extending inferiorly from her previous hysterectomy. I was able to advance the Baltazar cannulator to the left side of the abdominal cavity and pneumoperitoneum was obtained. The remaining three 5 mm ports were placed in the usual positions. I did inspect the periumbilical region through the epigastric port and this appears to be all omentum that was not interfering and adhesions were not further taken down. The patient was placed in reverse Trendelenburg position and rotated to her left. Only the very top of the gallbladder was visible as it was densely covered with omental adhesions. I was able to peel some of this off, so the gallbladder could be grasped and retracted. I was then able to remove the adhesions which were encasing the gallbladder. The gallbladder was tense and chronically inflamed, and the grasper did make a hole resulting in spillage of clear white bile that was immediately suctioned. This allowed better grasping of the gallbladder since it was now deflated. Slow dissection was used to isolate the cystic artery and cystic duct. The cystic artery was first isolated and clearly identified and doubly clipped proximally and once distally and then transected. This allowed me to dissect circumferentially around the base of the gallbladder. There was a large 8 mm stone impacted in the neck of the gallbladder which made dissection and grasping more difficult. Once I was able to get around the gallbladder completely, I was then able to carefully dissect further down on the neck beneath the impacted stone. This allowed clear identification of the cystic duct and lower third of the gallbladder. The cystic duct was then doubly clipped proximally and once distally and then transected. The gallbladder was removed from the bed of the liver with minimal difficulty using electrocautery. Minimal oozing occurred, which was either controlled with cautery or stopped spontaneously. The gallbladder was brought out through the umbilical incision. Right upper quadrant was thoroughly irrigated and inspected and return was clear and hemostasis assured. Ports were removed under direct vision and remained hemostatic. Umbilical fascia was closed with [id number] 0 Vicryl. Skin was closed with 4-0 Vicryl subcuticular sutures. Benzoin and Steri-Strips were placed and Band-Aids applied. The patient tolerated the procedure well. Estimated blood loss 10 mL. She returned to Postanesthesia in stable condition. /[id number] TIANA/MAGAN
== END 2020-03-06 12:39 | disposition home or self-care (01) ==
LOC: FB.SDS 07:30
PROVIDERS: ATTEND Surgery
DX: K80.10 Calculus of gallbladder with chronic cholecystitis without obstruction (principal); K66.0 Peritoneal adhesions (postprocedural) (postinfection); E78.5 Hyperlipidemia, unspecified; I10 Essential (primary) hypertension; F33.9 Major depressive disorder, recurrent, unspecified; K21.9 Gastro-esophageal reflux disease without esophagitis; F41.9 Anxiety disorder, unspecified; E11.65 Type 2 diabetes mellitus with hyperglycemia; K58.9 Irritable bowel syndrome, unspecified; Z11.59 Encounter for screening for other viral diseases; Z79.899 Other long term (current) drug therapy; Z79.4 Long term (current) use of insulin; Z90.710 Acquired absence of both cervix and uterus
CPT/HCPCS: 00790-QZ; 82962; 88304; 94150; A9270-GY; J0330; J0360; J1100; J2001; J2250; J2405; J2704; J3010; J3490; J7120; J7620-GY; U0002

== ENCOUNTER 2024-05-18 04:05 | Emergency (ER) | payer MEDICARE ==
[2024-05-18] MEDS: Albuterol/Ipratropium 3.0-0.5 MG/3 ML Neb Soln NEB ONE (04:28)
[2024-05-18] MEDS: methylPREDNISolone Sodium Succinate 125 MG/2 ML SDV IVPUSH ONE (04:28)
[2024-05-18 04:30] LABS: BASOPHILS PERCENT AUTO 0.6 % (0.2-1.5); EOSINOPHILS ABSOLUTE AUTO 0.1 x10-3/uL (0.0-0.8); EOSINOPHILS PERCENT AUTO 0.8 % (0.6-8.1); HEMOGLOBIN 14.6 g/dL (11.4-15.5); LYMPHOCYTES ABSOLUTE AUTO 1.4 x10-3/uL (1.0-4.4); LYMPHOCYTES PERCENT AUTO 16.1 % (18.4-52.1); MEAN CORPUSCULAR HEMOGLOBIN 30.1 pg (23.9-33.9); MEAN CORPUSCULAR VOLUME 88.4 fL (76.7-100.5); MEAN PLATELET VOLUME 9.1 fL (7.1-12.4); MONOCYTES ABSOLUTE AUTO 0.4 x10-3/uL (0.3-1.0); MONOCYTES PERCENT AUTO 4.7 % (4.4-15.7); NEUTROPHILS ABSOLUTE AUTO 6.6 x10-3/uL (1.5-6.3); NEUTROPHILS PERCENT AUTO 77.8 % (30.8-76.2); PLATELET COUNT,PLT 180 x10(3)uL (151-488); RED BLOOD CELL COUNT 4.86 x10(6)uL (3.60-5.20); RED CELL DISTRIBUTION WIDTH 13.8 % (12.3-16.5); WHITE BLOOD CELL COUNT,WBC 8.4 x10-3/uL (3.0-10.3)
[2024-05-18 04:35] LABS: BLOOD UREA NITROGEN,BUN 18 mg/dL (7-18); BUN/CREATININE RATIO 13.8 (9-20); CARBON DIOXIDE,CO2 31 mmol/L (21-32); CHLORIDE,CL 101 mmol/L (100-110); CREATININE 1.3 mg/dL (0.55-1.02); ESTIMATED GFR 42 mL/min (>60); GLUCOSE RANDOM 251 mg/dL (80-116); POTASSIUM,K 3.9 mmol/L (3.5-5.3); SODIUM,NA 139 mmol/L (135-145)
[2024-05-18 04:47] LABS: A/G RATIO 0.8; ALANINE AMINOTRANSFERASE,ALT 14 U/L (12-36); ALBUMIN 3.3 g/dL (3.2-4.6); ALKALINE PHOSPHATASE 118 IU/L (56-112); ASPARTATE AMNIOTRANSFERASE,AST 6 IU/L (5-25); BILIRUBIN TOTAL 1.2 mg/dL (0.1-1.3); PROTEIN TOTAL,TP 7.3 g/dL (6.0-8.0); TROPONIN I 8.1 pg/mL (4.0-60.3)
[2024-05-18 06:54] VITALS: BP 132/83; PULSE 72
== END 2024-05-18 06:40 | disposition home or self-care (01) ==
LOC: FB.ED 04:05
DX: J90 Pleural effusion, not elsewhere classified (principal); I10 Essential (primary) hypertension; E11.9 Type 2 diabetes mellitus without complications; Z86.73 Personal history of transient ischemic attack (TIA), and cerebral infarction without residual deficits; Z88.1 Allergy status to other antibiotic agents; Z88.8 Allergy status to other drugs, medicaments and biological substances; Z88.0 Allergy status to penicillin; Z79.82 Long term (current) use of aspirin
CPT/HCPCS: 36415; 71046; 80053; 83880; 84484; 85025; 85379; 93005; 93010; 94640; 96374; 99284; 99285-25; J2919; J7620

== ENCOUNTER 2025-02-08 06:21 | Emergency (ER) | payer MEDICARE ==
[2025-02-08] MEDS ORDERED: Lidocaine 1% 5 ML VIAL INJECT ONE (06:22)
[2025-02-08 07:02] LABS: BASOPHILS ABSOLUTE AUTO 0.1 x10-3/uL (0.0-0.1); BASOPHILS PERCENT AUTO 0.9 % (0.2-1.5); EOSINOPHILS ABSOLUTE AUTO 0.1 x10-3/uL (0.0-0.8); EOSINOPHILS PERCENT AUTO 0.9 % (0.6-8.1); HEMOGLOBIN 14.4 g/dL (11.4-15.5); LYMPHOCYTES ABSOLUTE AUTO 0.7 x10-3/uL (1.0-4.4); LYMPHOCYTES PERCENT AUTO 11.4 % (18.4-52.1); MEAN CORPUSCULAR HEMOGLOBIN 29.1 pg (23.9-33.9); MEAN CORPUSCULAR HGB CONC 33.4 g/dL (31.9-34.8); MEAN CORPUSCULAR VOLUME 86.9 fL (76.7-100.5); MEAN PLATELET VOLUME 8.3 fL (7.1-12.4); MONOCYTES ABSOLUTE AUTO 0.3 x10-3/uL (0.3-1.0); MONOCYTES PERCENT AUTO 4.5 % (4.4-15.7); NEUTROPHILS ABSOLUTE AUTO 5.3 x10-3/uL (1.5-6.3); NEUTROPHILS PERCENT AUTO 82.3 % (30.8-76.2); PLATELET COUNT,PLT 164 x10(3)uL (151-488); RED BLOOD CELL COUNT 4.94 x10(6)uL (3.60-5.20); RED CELL DISTRIBUTION WIDTH 14.9 % (12.3-16.5); WHITE BLOOD CELL COUNT,WBC 6.4 x10-3/uL (3.0-10.3)
[2025-02-08] MEDS: traMADol 50 MG Tab PO ONE (07:04)
[2025-02-08 07:05] LABS: BLOOD UREA NITROGEN,BUN 20 mg/dL (7-18); BUN/CREATININE RATIO 16.7 (9-20); CALCIUM 9.6 mg/dL (8.6-10.2); CARBON DIOXIDE,CO2 28 mmol/L (21-32); CHLORIDE,CL 103 mmol/L (100-110); CREATININE 1.2 mg/dL (0.55-1.02); EST CRCL DRUG DOSING (CG) 31.96 mL/min; ESTIMATED GFR 46 mL/min (>60); GLUCOSE RANDOM 186 mg/dL (80-116); POTASSIUM,K 4.3 mmol/L (3.5-5.3); SODIUM,NA 139 mmol/L (135-145)
[2025-02-08] MEDS: Triamcinolone Acetonide 40 MG/ML 1 ML SDV IBURSA ONE (07:50)
[2025-02-08 08:35] VITALS: BP 192/92; PULSE 69
== END 2025-02-08 08:46 | disposition home or self-care (01) ==
LOC: FB.ED 06:21
DX: M70.62 Trochanteric bursitis, left hip (principal); I12.9 Hypertensive chronic kidney disease with stage 1 through stage 4 chronic kidney disease, or unspecified chronic kidney disease; E11.22 Type 2 diabetes mellitus with diabetic chronic kidney disease; F17.200 Nicotine dependence, unspecified, uncomplicated; J44.9 Chronic obstructive pulmonary disease, unspecified; M19.90 Unspecified osteoarthritis, unspecified site; N18.9 Chronic kidney disease, unspecified; Z88.0 Allergy status to penicillin; Z88.1 Allergy status to other antibiotic agents; Z88.8 Allergy status to other drugs, medicaments and biological substances; Z79.899 Other long term (current) drug therapy; Z79.82 Long term (current) use of aspirin; Z79.02 Long term (current) use of antithrombotics/antiplatelets; Z90.49 Acquired absence of other specified parts of digestive tract; Z90.710 Acquired absence of both cervix and uterus
CPT/HCPCS: 20610; 36415; 73502; 80048; 85025; 99283; A9270; J2003; J3301